=== PATIENT | male | born 1940 | race Caucasian/White ===

== ENCOUNTER 2017-07-30 15:11 | Emergency (ER) | payer OTHER | END 2017-07-30 17:38 | disposition home or self-care (01) | LOC: M ED 15:11 | DX: Z04.1 Encounter for examination and observation following transport accident (principal); S60.512A Abrasion of left hand, initial encounter; V43.52XA Car driver injured in collision with other type car in traffic accident, initial encounter; Y92.410 Unspecified street and highway as the place of occurrence of the external cause; I10 Essential (primary) hypertension; K21.9 Gastro-esophageal reflux disease without esophagitis; N40.0 Benign prostatic hyperplasia without lower urinary tract symptoms; E78.9 Disorder of lipoprotein metabolism, unspecified; Z79.899 Other long term (current) drug therapy | CPT/HCPCS: 73130 ==

== ENCOUNTER 2019-08-29 09:56 | Emergency (ER) | payer MEDICARE, OTHER ==
[~2019-08-29] VITALS: Ht 177.8 cm; Wt 76.4 kg
[~2019-08-29 09:56] MED LIST: METO100T5; OMEP1CAP73; SIMV80TA13
[2019-08-29] MEDS ORDERED: TRAZ-252 (10:05)
[2019-08-29] MEDS ORDERED: HYDR-4571 (10:05)
[2019-08-29] MEDS ORDERED: SIMV40TA20 (10:05)
[2019-08-29] MEDS ORDERED: NS 500 ML IV ONE (10:15)
[2019-08-29] MEDS ORDERED: ONDANSETRON 4MG/2ML VIAL IV ONE (10:30)
[2019-08-29] MEDS ORDERED: MORPHINE 2 MG/ML 1ML VIAL (J2270) IV PRN (10:30)
--- NOTE | 2019-08-29 10:41 | REP ---
Clinical: Flank pain. Technique: Axial noncontrast images from the thoracic inlet to the upper abdomen with coronal and sagittal re-formations. Findings: Acute left-sided obstructive uropathy with perinephric stranding and hydroureteronephrosis is appreciated with 9 mm obstructing calculus in the mid-left ureter (images 74 - 76). Left kidney includes a multiple cysts up to 3 cm and multiple nonobstructing intrarenal calculi up to 12 mm. Right kidney demonstrates multiple cysts up to 6.8 cm and 3 mm nonobstructing lower pole calculus. Liver, spleen, pancreas, gallbladder, and bilateral adrenal glands are normal. The enteric system is without obstruction or acute inflammatory process. Evidence for prior partial sigmoid resection noted. Pelvis demonstrates bladder with small diverticulum and prostatomegaly. No ascites. No free air. No adenopathy. Atherosclerotic changes to the aorta noted without aneurysm. Musculoskeletal structures demonstrate degenerative changes. Lung bases are clear. Impression: 1. Acute left-sided obstructive uropathy with a 9 mm calculus in the mid-left ureter. 2. Kidneys demonstrate bilateral cysts and nonobstructing nephroliths as described above. 3. Prostatomegaly and small left bladder diverticulum. Electronically Signed by Calixto Jeffries MD 08/29/2019 10:33 A
[2019-08-29 10:46] LABS: BASO % 0.2 % (0.0-1.0); EOS # 0.1 10^3/uL (0.0-0.5); EOS % 0.7 % (0.0-3.0); HEMATOCRIT 46.5 % (42.0-52.0); HEMOGLOBIN 15.4 g/dl (13.5-17.5); LYMPH # 0.9 10^3/uL (1.5-5.0); LYMPH % 10.7 % (24.0-44.0); MEAN CORPUSCULAR HEMOGLOBIN 30.7 pg (27.0-33.0); MEAN CORPUSCULAR HGB CONC 33.1 g/dl (32.0-36.5); MEAN CORPUSCULAR VOLUME 92.6 fl (80.0-96.0); MONO % 12.6 % (0.0-5.0); NEUTROPHILS # 6.1 10^3/uL (1.5-8.5); NEUTROPHILS % 75.7 % (36.0-66.0); PLATELET COUNT, AUTOMATED 160 10^3/uL (150-450); RED BLOOD COUNT 5.02 10^6/uL (4.30-6.10)
[2019-08-29 11:07] LABS: INR 1.12; PROTHROMBIN TIME 14.1 SECONDS (11.8-14.0)
[2019-08-29 11:10] LABS: ALBUMIN 4.1 GM/DL (3.2-5.2); BILIRUBIN,DIRECT 0.3 MG/DL (0.0-0.2); BILIRUBIN,TOTAL 1.2 MG/DL (0.2-1.0); TOTAL PROTEIN 7.3 GM/DL (6.4-8.2)
[2019-08-29 13:05] VITALS: BP 184/96
--- NOTE | 2019-08-29 13:23 | SMCUROLCON ---
Urology Consultation General Date of Consultation 08/29/19 Reason For Consultation This patient is seen for Urinary Problem. History of Present Illness The patient is an 79-year-old white male with a past medical history for ureteral calculi. He states that he has had at least 5 stones in the past and has never needed any procedures. One stone he caught in the strainer, but the rest he does not know what happened to them. He states that 2 days ago he began having abdominal discomfort which very quickly localized to the left flank. When it became intense. He went to a local urgent care center and was diagnosed with a ureteral stone. He was sent home with hydrocodone. When the pain persisted. He drove himself to the emergency room here. CT scan shows a mid left ureteral stone 8-9 mm in size, causing hydroureteronephrosis. Past Medical History Medical History Coronary artery disease Recently diagnosed lung cancer Heart disease. Previous heart attack. Cardiac surgery. Hypercholesterolemia. Hyperlipidemia. Respiratory disorders. Gastric reflux. Gastrointestinal disorders. Kidney stones. BPH Surgical Hstory Cardiac stents Social History * Smoker: former Smoker Drugs: denies Medications Current Medications Current Medications Medications (Trade) Dose Ordered Sig/Miguelito Route PRN Reason Start Time Stop Time Status Last Admin Dose Admin Morphine Sulfate (Morphine Sulfate Inj) 2 mg Q30M PRN IV MODERATE PAIN (PS 5-7) 08/29/19 10:30 Allergies Allergies: Coded Allergies: No Known Allergies (Unverified , 07/30/17) Review of Systems General: Reports: Normal Appetite; Denies: Fatigue, Malaise Constitutional: Denies: Fever, Chills, Sweats, Weakness, Malaise Eyes: Denies: Pain, Vision change ENT: Denies: Head Aches, Sore Throat, Epistaxis Skin: Denies: Rash, Lesions, Breakdown, Nail Changes Pulmonary: Denies: Dyspnea, Cough Cardiovascular: Denies Chest Pain, Denies Palpitations Gastrointestinal: Denies: Nausea, Vomiting, Abdominal Pain Genitourinary: Denies: Dysuria, Frequency, Incontinence, Hematuria Hematologic: Denies: Bruising, Bleeding Excessively Endocrine: Denies: Polydipsia, Polyphagia, Polyuria Musculoskeletal: Denies: Neck Pain, Back Pain Neurological: Denies: Weakness, Numbness, Incoordination, Change in Speech Psych: Reports: Mood Normal; Denies: Anxiety, Depression Physical Examination General Exam: Alert, No Acute Distress EYE EXAM: PERRLA, Conjunctiva & lids normal, EOMI; No: Sclera icteric ENT EXAM: Atraumatic, Mucous membr. moist/pink, Pharynx Normal Neck Exam: Supple; No: JVD, thyromegaly Heart Exam: Rate Normal, Regular Rhythm, Normal S1, Normal S2; No: Murmurs, Rubs Abdomen Exam: Normal Bowel Sounds, Soft; No: Tenderness, Hepatospenomegaly Male Exam: Normal Genital Exam Skin Exam: Nl turgor and temperature; No: Rash, Breakdown Neuro Exam: Normal Gait, Normal Speech, Cranial Nerves 3-12 NL, Reflexes 2+ Psych Exam: Mental status NL, Mood NL, Oriented x 3 Vital Signs/I&O Vital Signs Date Time Temp Pulse Resp B/P (MAP) Pulse Ox O2 Delivery O2 Flow Rate FiO2 08/29/19 13:05 98.0 85 22 184/96 (125) 99 Room Air Laboratory Data 24H Labs Laboratory Tests 2 08/29/19 10:32: Immature Granulocyte % (Auto) 0.1, Neutrophils (%) (Auto) 75.7H, Lymphocytes (%) (Auto) 10.7L, Monocytes (%) (Auto) 12.6H, Eosinophils (%) (Auto) 0.7, Basophils (%) (Auto) 0.2, Neutrophils # (Auto) 6.1, Lymphocytes # (Auto) 0.9L, Monocytes # (Auto) 1.0H, Eosinophils # (Auto) 0.1, Basophils # (Auto) 0.0, Nucleated Red Blood Cells % (auto) 0.0, Prothrombin Time 14.1H, Prothromb Time International Ratio 1.12, Total Bilirubin 1.2H, Direct Bilirubin 0.3H, Aspartate Amino Transf (AST/SGOT) 43H, Alanine Aminotransferase (ALT/SGPT) 26, Alkaline Phosphatase 77, Total Protein 7.3, Albumin 4.1, Albumin/Globulin Ratio 1.3, Lipase 70L 08/29/19 10:33: POC Glucose (Misc Panel) 96, POC Sodium (Misc Panel) 142, POC Potassium (Misc Panel) 3.8, POC Chloride (Misc Panel) 102, POC Total CO2 (Misc Panel) 25.0, POC Blood Urea Nitrogen (Misc Panel 32H, POC Ionized Calcium (Misc Panel) 4.8, POC Creatinine (Misc Panel) 1.5H, POC Hematocrit (Misc Panel) 46.0 08/29/19 10:35: Urine Color YELLOW, Urine Appearance CLOUDYH, Urine pH 6.0, Urine Specific [place] 1.018, Urine Protein NEGATIVE, Urine Glucose (UA) NEGATIVE, Urine Ketones TRACEH, Urine Blood 3+H, Urine Nitrite NEGATIVE, Urine Bilirubin NEGATIVE, Urine Urobilinogen 0.2, Urine Leukocyte Esterase NEGATIVE, Urine WBC (Auto) 1, Urine RBC (Auto) TNTCH, Urine Hyaline Casts (Auto) 0, Urine Bacteria (Auto) NEGATIVE, Urine Squamous Epithelial Cells 0, Urine Sperm (Auto) CBC/BMP Laboratory Tests 08/29/19 10:32 Assessment I reviewed the CT scan which confirms a ureteral calculus at the distal end of the middle third of the ureter just above the vessels. It is causing some obstruction with hydroureteronephrosis. He also has other nonobstructing calculi in the renal pelvis. Plan I discussed treatment options with the patient and recommended a stent insertion. He then can get a medical clearance and cardiac clearance and have ureteroscopic laser lithotripsy performed. I also informed him that because of the anesthesia that will be involved. He will need to stay tonight because he does not have anyone to drive him home. At this, he objected and stated that there is no way he can stay and after long discussion, he decided to sign out AMA and return when it is more convenient for him to get a ride home and not up to stay for a length of time. I discussed with him the potential problems of shunting stone, especially if he should become septic, but he states that he needs to get home and be with his . He states his grandson will drive him up here at a later date. He expressed understanding of the potential dangers of not treating the stone. Time Spent on Consult: Time Spent / Consult (Minutes): 90 CHENG PERKINS MD Aug 29, 2019 13:22
== END 2019-08-29 13:15 | disposition left against medical advice (07) ==
LOC: M ED 09:56
DX: N20.1 Calculus of ureter (principal); I10 Essential (primary) hypertension; E78.5 Hyperlipidemia, unspecified; I25.10 Atherosclerotic heart disease of native coronary artery without angina pectoris; Z87.442 Personal history of urinary calculi; Z85.118 Personal history of other malignant neoplasm of bronchus and lung; Z95.5 Presence of coronary angioplasty implant and graft; Z79.899 Other long term (current) drug therapy
CPT/HCPCS: 74176; 80047; 80076; 81001; 83690; 85025; 85610; 96361; 96374; 99284; J2405